=== PATIENT | male | born 1980 | race Caucasian/White ===

== ENCOUNTER 2017-12-18 03:53 | Emergency (ER) | payer MEDICAID ==
[~2017-12-18] VITALS: Ht 180.3 cm; Wt 81.6 kg
[2017-12-18 04:27] LABS: Urine Bacteria NONE SEEN /hpf (None Seen); Urine Blood 1+ /uL (Negative); Urine Specific Gravity 1.036 (1.001-1.035); Urine WBC <1 /hpf (0 - 3)
[2017-12-18 04:35] LABS: Basophils # (auto) 0 uL; Basophils % (auto) 0.7 % (0.0-2.0); Eosinophils # (auto) 0.1 uL; Eosinophils % (auto) 2.1 % (0.0-7.0); Hematocrit 46.3 % (41.0-53.0); Hemoglobin 16.2 g/dL (13.5-17.5); Lymphocytes # (auto) 2.3 uL; Lymphocytes % (auto) 41.2 % (10.0-50.0); Mean Corpuscular Hgb Conc. 34.9 g/dL (32.0-36.0); Mean Corpuscular Volume 88.8 fL (80.0-100.0); Monocytes # (auto) 0.4 uL; Monocytes % (auto) 7.8 % (0.0-12.0); Neutrophils # (auto) 2.7 uL; Neutrophils % (auto) 48.2 % (37.0-80.0); Nucleated Red Blood Cells % 0.1 %; Platelet Count (auto) 208 10^3/uL (140-450); Red Blood Cells 5.21 10^6/uL (4.5-5.90); Red Cell Distribution Width 14.2 % (11.8-14.3); White Blood Cell 5.6 10^3/uL (4.4-10.8)
[2017-12-18 04:43] LABS: Albumin 3.6 g/dL (3.4-5.0); BUN/Creatinine Ratio 14.9; Calcium 8.5 mg/dL (8.5-10.1); Potassium 4.1 mmol/L (3.5-5.1)
[2017-12-18 04:44] LABS: Bilirubin, Total 0.8 mg/dL (0.2-1.0); Total Protein 7.4 g/dL (6.4-8.2)
[2017-12-18 04:47] LABS: INR 0.97 (0.9-1.15); Partial Thromboplastin Time 28.5 sec (22.64-33.71); Prothrombin Time 10.6 sec (9.37-12.3)
[2017-12-18] MEDS ORDERED: SODIUM CHLORIDE 0.9% 1,000 ML IV ONE (06:42)
[2017-12-18] MEDS ORDERED: KETOROLAC TROMETH 30 MG/ML 1ML VIAL IV ONE (06:45)
[2017-12-18 07:00] VITALS: BP 155/80
[2017-12-18] MEDS ORDERED: DOCUSATE SOD 100 MG CAP PO ONE (07:30)
== END 2017-12-18 07:44 | disposition home or self-care (01) ==
LOC: ER 03:58
DX: K59.00 Constipation, unspecified (principal); E11.9 Type 2 diabetes mellitus without complications; F17.210 Nicotine dependence, cigarettes, uncomplicated; F12.10 Cannabis abuse, uncomplicated
CPT/HCPCS: 36415; 74176; 80053; 81001; 82962; 85025; 85610; 85730; 99285; J7030

== ENCOUNTER 2018-12-29 12:23 | Emergency (ER) | payer MEDICAID ==
[~2018-12-29] VITALS: Ht 182.9 cm; Wt 90.3 kg
[2018-12-29 12:40] VITALS: BP 150/95
[2018-12-29] MEDS ORDERED: SODIUM CHLORIDE 0.9% 1,000 ML IV ONE ×2 (13:00→14:00)
[2018-12-29 13:15] LABS: Basophils # (auto) 0 uL; Basophils % (auto) 0.8 % (0.0-2.0); Eosinophils # (auto) 0.1 uL; Eosinophils % (auto) 2.1 % (0.0-7.0); Hematocrit 38.6 % (41.0-53.0); Hemoglobin 13.4 g/dL (13.5-17.5); Lymphocytes # (auto) 1.9 uL; Lymphocytes % (auto) 35.9 % (10.0-50.0); Mean Corpuscular Hemoglobin 30.9 pg (28.0-32.0); Mean Corpuscular Hgb Conc. 34.8 g/dL (32.0-36.0); Mean Corpuscular Volume 88.6 fL (80.0-100.0); Monocytes # (auto) 0.3 uL; Monocytes % (auto) 6.3 % (0.0-12.0); Neutrophils # (auto) 2.9 uL; Neutrophils % (auto) 54.9 % (37.0-80.0); Nucleated Red Blood Cells % 0.1 %; Platelet Count (auto) 182 10^3/uL (140-450); Red Blood Cells 4.35 10^6/uL (4.5-5.90); Red Cell Distribution Width 13.4 % (11.8-14.3); White Blood Cell 5.2 10^3/uL (4.4-10.8)
[2018-12-29] MEDS ORDERED: cefTRIAXone 1GM/50ML D5W 50 ML IV ONE (13:15)
[2018-12-29 13:25] LABS: Urine Bacteria NONE SEEN /hpf (None Seen); Urine Blood 2+ /uL (Negative); Urine Specific Gravity 1.022 (1.001-1.035); Urine WBC 2 /hpf (0 - 3)
[2018-12-29 13:30] LABS: Albumin 3.1 g/dL (3.4-5.0); Calcium 8.9 mg/dL (8.5-10.1); Potassium 4.3 mmol/L (3.5-5.1)
[2018-12-29 13:33] LABS: BUN/Creatinine Ratio 12.9; Bilirubin, Total 0.6 mg/dL (0.2-1.0); Total Protein 6.7 g/dL (6.4-8.2)
[2018-12-29] MEDS ORDERED: InsuLIN REG 1unit/0.01ml Soln (100units/ml) IV ONE (13:45)
== END 2018-12-29 15:00 | disposition home or self-care (01) ==
LOC: ER 12:29
DX: S90.422A Blister (nonthermal), left great toe, initial encounter (principal); L08.9 Local infection of the skin and subcutaneous tissue, unspecified; E11.65 Type 2 diabetes mellitus with hyperglycemia; F17.210 Nicotine dependence, cigarettes, uncomplicated; F12.10 Cannabis abuse, uncomplicated; X58.XXXA Exposure to other specified factors, initial encounter; Y93.89 Activity, other specified; Y99.8 Other external cause status; Y92.89 Other specified places as the place of occurrence of the external cause
CPT/HCPCS: 36415; 73660; 80053; 81001; 82962; 85025; 96361; 96365; 96375; 99284; J0696; J7030

== ENCOUNTER 2019-01-08 13:45 | Inpatient (IN) | payer MEDICAID | END 2019-01-12 19:00 | disposition home health service (06) | LOC: ER 13:45 → OVERFLOW 16:47 → EAST 18:30 | DX: L03.032 Cellulitis of left toe (principal); E13.621 Other specified diabetes mellitus with foot ulcer; E44.0 Moderate protein-calorie malnutrition; E11.65 Type 2 diabetes mellitus with hyperglycemia; L97.529 Non-pressure chronic ulcer of other part of left foot with unspecified severity; F17.210 Nicotine dependence, cigarettes, uncomplicated; Z91.19 Patient's noncompliance with other medical treatment and regimen ==

== ENCOUNTER 2019-12-02 16:08 | Inpatient (IN) | payer MEDICAID ==
[~2019-12-02] VITALS: Ht 182.9 cm; Wt 94.0 kg
[~2019-12-02 16:08] MED LIST: METF-370 PO
[2019-12-02] MEDS ORDERED: SODIUM CHLORIDE 0.9% 1,000 ML IV ONE ×2 (16:35)
[2019-12-02] MEDS ORDERED: PIPERACILLIN-TAZOB 3.375GM 100 ML IV ONE (16:45)
[2019-12-02 17:07] LABS: Basophils # (auto) 0.1 10 ^3/uL (0-0.2); Basophils % (auto) 0.6 % (0.0-2.0); Eosinophils # (auto) 0.2 10 ^3/uL (0-0.8); Eosinophils % (auto) 1.8 % (0.0-7.0); Hematocrit 26.5 % (41.0-53.0); Hemoglobin 9.4 g/dL (13.5-17.5); Lymphocytes # (auto) 1.2 10 ^3/uL (0.4-5.4); Lymphocytes % (auto) 12.7 % (10.0-50.0); Mean Corpuscular Hemoglobin 30.5 pg (28.0-32.0); Mean Corpuscular Hgb Conc. 35.4 g/dL (32.0-36.0); Mean Corpuscular Volume 86.1 fL (80.0-100.0); Monocytes # (auto) 0.6 10 ^3/uL (0-1.3); Monocytes % (auto) 6.5 % (0.0-12.0); Neutrophils # (auto) 7.4 10 ^3/uL (1.6-8.6); Neutrophils % (auto) 78.4 % (37.0-80.0); Platelet Count (auto) 278 10^3/uL (140-450); Red Blood Cells 3.08 10^6/uL (4.5-5.90); Red Cell Distribution Width 12.7 % (11.8-14.3); White Blood Cell 9.4 10^3/uL (4.4-10.8)
[2019-12-02 17:25] LABS: Alanine Aminotransferase 19 U/L (16-61); Albumin 1.9 g/dL (3.4-5.0); Anion Gap 9 (5-15); Aspartate Aminotransferase 12 U/L (15-37); BUN/Creatinine Ratio 16.5; Blood Urea Nitrogen 34 mg/dL (7-18); Calcium 8.1 mg/dL (8.5-10.1); Carbon Dioxide 21 mmol/L (21-32); Chloride 103 mmol/L (98-107); GFR African American 46 mL/min; GFR Non-African American 38 mL/min; Glucose 262 mg/dL (74-106); Partial Thromboplastin Time 19.7 sec (23.64-32.05); Potassium 4.3 mmol/L (3.5-5.1); Sodium 133 mmol/L (136-145)
[2019-12-02 17:29] LABS: Alkaline Phosphatase 78 U/L (45-117); Bilirubin, Total 0.2 mg/dL (0.2-1.0); Total Protein 6.5 g/dL (6.4-8.2)
[2019-12-02] MEDS ORDERED: DEXTROSE (50%) 50ML SYRG IV PRN (18:45)
[2019-12-02] MEDS ORDERED: NITROGLYCERIN 0.4 MG SL TAB SL PRN (18:45)
[2019-12-02] MEDS ORDERED: VANCOMYCIN PER PHARMACY 0 MG IV SCH ×2 (18:45)
[2019-12-02] MEDS ORDERED: MORPHINE SULF INJ 2 MG/ML SYRINGE 1ML IV PRN ×2 (18:45)
[2019-12-02] MEDS ORDERED: HYDROcodone-ACET 5/325MG TAB PO PRN (18:45)
[2019-12-02] MEDS ORDERED: VANCOMYCIN 1GM/250ML 250 ML IV ONE (20:00)
[2019-12-02] MEDS: SODIUM CHLORIDE 0.9% 1,000 ML IV SCH (20:05)
[2019-12-02 22:00] VITALS: BP 152/100
[2019-12-02] MEDS: metroNIDAZOLE 500MG/100ML 100 ML IV SCH (22:31)
[2019-12-02] MEDS: FAMOTIDINE 20 MG TAB PO SCH (22:32)
[2019-12-02] MEDS: ACCU-CHEK COMFORT CURVE STRIP VI SCH (22:52)
[2019-12-02] MEDS: InsuLIN REG 1unit/0.01ml Soln (100units/ml) SC SCH (22:53)
[2019-12-03 05:00] VITALS: BP 153/83
[2019-12-03 05:39] LABS: Basophils # (auto) 0 10 ^3/uL (0-0.2); Basophils % (auto) 0.5 % (0.0-2.0); Eosinophils # (auto) 0.1 10 ^3/uL (0-0.8); Eosinophils % (auto) 1.8 % (0.0-7.0); Hematocrit 22.2 % (41.0-53.0); Hemoglobin 7.9 g/dL (13.5-17.5); Lymphocytes # (auto) 1.4 10 ^3/uL (0.4-5.4); Lymphocytes % (auto) 16.9 % (10.0-50.0); Mean Corpuscular Hemoglobin 30.9 pg (28.0-32.0); Mean Corpuscular Hgb Conc. 35.8 g/dL (32.0-36.0); Mean Corpuscular Volume 86.2 fL (80.0-100.0); Monocytes # (auto) 0.5 10 ^3/uL (0-1.3); Monocytes % (auto) 6.4 % (0.0-12.0); Neutrophils # (auto) 6.1 10 ^3/uL (1.6-8.6); Neutrophils % (auto) 74.4 % (37.0-80.0); Platelet Count (auto) 270 10^3/uL (140-450); Red Blood Cells 2.57 10^6/uL (4.5-5.90); Red Cell Distribution Width 12.9 % (11.8-14.3); White Blood Cell 8.2 10^3/uL (4.4-10.8)
[2019-12-03 05:59] LABS: INR 1.05 (0.9-1.15); Partial Thromboplastin Time 31.6 sec (23.64-32.05)
[2019-12-03 06:00] LABS: Calcium 7.9 mg/dL (8.5-10.1)
[2019-12-03 06:03] LABS: BUN/Creatinine Ratio 18.2
[2019-12-03] MEDS: metroNIDAZOLE 500MG/100ML 100 ML IV SCH ×3 (06:36→22:28)
[2019-12-03] MEDS: SODIUM CHLORIDE 0.9% 1,000 ML IV SCH ×3 (06:36→11:43)
[2019-12-03] MEDS: InsuLIN REG 1unit/0.01ml Soln (100units/ml) SC SCH ×4 (06:47→22:18)
[2019-12-03] MEDS: ACCU-CHEK COMFORT CURVE STRIP VI SCH ×4 (06:47→22:17)
[2019-12-03 08:00] VITALS: BP 155/80
[2019-12-03 09:27] VITALS: BP 155/80
[2019-12-03] MEDS: levoFLOXacin 750MG 150 ML IV SCH (10:05)
[2019-12-03] MEDS: FAMOTIDINE 20 MG TAB PO SCH ×2 (10:05→22:28)
[2019-12-03 13:00] VITALS: BP 149/90
[2019-12-03] MEDS: VANCOMYCIN 1GM/250ML 250 ML IV SCH (14:42)
[2019-12-03 16:53] VITALS: BP 148/86
[2019-12-03 22:00] VITALS: BP 154/91
[2019-12-04] MEDS: VANCOMYCIN 1GM/250ML 250 ML IV SCH ×2 (01:35→15:04)
[2019-12-04] MEDS: ACETAMINOPHEN 500 MG TAB PO PRN ×2 (02:30→22:26)
[2019-12-04 05:00] VITALS: BP 141/76
[2019-12-04] MEDS: metroNIDAZOLE 500MG/100ML 100 ML IV SCH ×3 (06:14→22:16)
[2019-12-04] MEDS: ACCU-CHEK COMFORT CURVE STRIP VI SCH ×4 (06:30→22:15)
[2019-12-04] MEDS: InsuLIN REG 1unit/0.01ml Soln (100units/ml) SC SCH ×4 (06:31→22:25)
[2019-12-04 09:26] VITALS: BP_SYST 150; BP_SYST 151; BP_DIAS 84; BP_DIAS 94
[2019-12-04] MEDS: levoFLOXacin 750MG 150 ML IV SCH (10:05)
[2019-12-04] MEDS: FAMOTIDINE 20 MG TAB PO SCH ×2 (10:05→22:15)
[2019-12-04] MEDS: SODIUM CHLORIDE 0.9% 1,000 ML IV SCH (10:06)
[2019-12-04 11:28] LABS: Basophils # (auto) 0.1 10 ^3/uL (0-0.2); Basophils % (auto) 0.7 % (0.0-2.0); Eosinophils # (auto) 0.1 10 ^3/uL (0-0.8); Eosinophils % (auto) 1.8 % (0.0-7.0); Hematocrit 24.6 % (41.0-53.0); Hemoglobin 8.7 g/dL (13.5-17.5); Lymphocytes # (auto) 1.1 10 ^3/uL (0.4-5.4); Lymphocytes % (auto) 14.2 % (10.0-50.0); Mean Corpuscular Hemoglobin 30.8 pg (28.0-32.0); Mean Corpuscular Hgb Conc. 35.5 g/dL (32.0-36.0); Mean Corpuscular Volume 86.9 fL (80.0-100.0); Monocytes # (auto) 0.5 10 ^3/uL (0-1.3); Monocytes % (auto) 6.2 % (0.0-12.0); Neutrophils # (auto) 6.1 10 ^3/uL (1.6-8.6); Neutrophils % (auto) 77.1 % (37.0-80.0); Nucleated Red Blood Cells % 0.1 %; Platelet Count (auto) 278 10^3/uL (140-450); Red Blood Cells 2.83 10^6/uL (4.5-5.90); Red Cell Distribution Width 12.7 % (11.8-14.3); White Blood Cell 7.9 10^3/uL (4.4-10.8)
[2019-12-04] MEDS: hydrALAZINE HCL 20 MG/ML VL IV PRN ×3 (11:36→18:07)
[2019-12-04 11:45] LABS: Calcium 8.4 mg/dL (8.5-10.1); Potassium 4.4 mmol/L (3.5-5.1)
[2019-12-04 11:47] LABS: BUN/Creatinine Ratio 13.7
[2019-12-04 13:00] VITALS: BP 159/92
[2019-12-04 17:16] VITALS: BP 156/97
[2019-12-04 21:49] VITALS: BP 162/98
[2019-12-04] MEDS: INSULIN LANTUS (GLARGINE) 1 /0.01ml (100units/ml) SC SCH (22:26)
[2019-12-05] MEDS: VANCOMYCIN 1GM/250ML 250 ML IV SCH (03:00)
[2019-12-05 05:08] VITALS: BP 152/84
[2019-12-05] MEDS: InsuLIN REG 1unit/0.01ml Soln (100units/ml) SC SCH ×4 (06:29→22:42)
[2019-12-05] MEDS: ACCU-CHEK COMFORT CURVE STRIP VI SCH ×4 (06:29→22:42)
[2019-12-05] MEDS: metroNIDAZOLE 500MG/100ML 100 ML IV SCH ×3 (06:30→22:40)
[2019-12-05] MEDS: SODIUM CHLORIDE 0.9% 1,000 ML IV SCH (06:31)
[2019-12-05 09:00] VITALS: BP 137/73
[2019-12-05] MEDS: FAMOTIDINE 20 MG TAB PO SCH ×2 (12:55→22:40)
[2019-12-05] MEDS: levoFLOXacin 750MG 150 ML IV SCH (12:55)
[2019-12-05 13:00] VITALS: BP 150/82
[2019-12-05 14:19] LABS: Calcium 8.1 mg/dL (8.5-10.1); Potassium 4.4 mmol/L (3.5-5.1)
[2019-12-05 14:27] LABS: BUN/Creatinine Ratio 13.9
[2019-12-05] MEDS ORDERED: VANCOMYCIN 1GM/250ML 250 ML IV SCH (15:00)
[2019-12-05 16:51] VITALS: BP 157/94
[2019-12-05 21:00] VITALS: BP 144/97
[2019-12-05] MEDS: INSULIN LANTUS (GLARGINE) 1 /0.01ml (100units/ml) SC SCH (22:41)
[2019-12-06 05:00] VITALS: BP 155/90
[2019-12-06 05:35] LABS: Basophils # (auto) 0 10 ^3/uL (0-0.2); Lymphocytes # (auto) 1.4 10 ^3/uL (0.4-5.4); Mean Corpuscular Volume 85.5 fL (80.0-100.0)
[2019-12-06 05:37] LABS: Basophils % (auto) 0.5 % (0.0-2.0); Eosinophils # (auto) 0.1 10 ^3/uL (0-0.8); Eosinophils % (auto) 2.3 % (0.0-7.0); Hematocrit 23.5 % (41.0-53.0); Hemoglobin 8.3 g/dL (13.5-17.5); Lymphocytes % (auto) 21.8 % (10.0-50.0); Mean Corpuscular Hemoglobin 30.3 pg (28.0-32.0); Mean Corpuscular Hgb Conc. 35.5 g/dL (32.0-36.0); Monocytes # (auto) 0.4 10 ^3/uL (0-1.3); Monocytes % (auto) 6.9 % (0.0-12.0); Neutrophils # (auto) 4.4 10 ^3/uL (1.6-8.6); Neutrophils % (auto) 68.5 % (37.0-80.0); Platelet Count (auto) 274 10^3/uL (140-450); Red Blood Cells 2.75 10^6/uL (4.5-5.90); Red Cell Distribution Width 12.8 % (11.8-14.3); White Blood Cell 6.5 10^3/uL (4.4-10.8)
[2019-12-06 05:47] LABS: BUN/Creatinine Ratio 18.4; Calcium 8.3 mg/dL (8.5-10.1); Potassium 4.5 mmol/L (3.5-5.1)
[2019-12-06] MEDS: InsuLIN REG 1unit/0.01ml Soln (100units/ml) SC SCH ×4 (06:46→22:23)
[2019-12-06] MEDS: ACCU-CHEK COMFORT CURVE STRIP VI SCH ×4 (06:47→22:21)
[2019-12-06] MEDS ORDERED: CLINDAMYCIN 600MG IV 50 ML IV ONE (06:53)
[2019-12-06] MEDS ORDERED: BACITRACIN INJ 50000 UNIT VIAL ONE (06:56)
[2019-12-06] MEDS ORDERED: LIDOCAINE 1% HCL (LOCAL ANESTH.) INJ 20ML MDV ONE (07:37)
[2019-12-06] MEDS ORDERED: SUCCINYLCHOLINE CHLORIDE 20 MG/ML 10ML VIAL IV ONE (07:38)
[2019-12-06] MEDS ORDERED: MIDAZOLAM HCL 1MG/1ML-2 ML VIAL ONE (07:40)
[2019-12-06] MEDS ORDERED: METOCLOPRAMIDE HCL 5MG/ml INJ 2ml VIAL ONE (07:46)
[2019-12-06] MEDS ORDERED: diphenhdrAMINE HCL 50 MG/1 ML VL ONE (07:47)
[2019-12-06] MEDS ORDERED: GLYCOPYRROLATE 0.2 MG/ML 1ML VIAL ONE (07:47)
[2019-12-06] MEDS ORDERED: hydrALAZINE HCL 20 MG/ML VL ONE (07:49)
[2019-12-06] MEDS ORDERED: PROPOFOL 10 MG/ML 20 ML IV ONE ×2 (07:50→07:51)
[2019-12-06] MEDS: BUPIVACAINE HCL 50 ML ONE ×2 (07:58→09:55)
[2019-12-06] MEDS ORDERED: HYDROmorphone HCL 2 MG/ML VL IV PRN ×2 (08:00)
[2019-12-06] MEDS ORDERED: hydrALAZINE HCL 20 MG/ML VL IV PRN (08:00)
[2019-12-06] MEDS ORDERED: NALOXONE HCL 0.4 MG/ML VIAL IV PRN (08:00)
[2019-12-06] MEDS ORDERED: ACCU-CHEK COMFORT CURVE STRIP VI ONE (08:00)
[2019-12-06] MEDS ORDERED: ONDANSETRON HCL 4 MG/2 ML VIAL IV PRN (08:00)
[2019-12-06] MEDS ORDERED: LIDOCAINE HCL 2% TOP JELLY 5ML TOP ONE (08:10)
[2019-12-06] MEDS: FAMOTIDINE 20 MG TAB PO SCH ×2 (10:17→22:21)
[2019-12-06] MEDS: levoFLOXacin 500 MG TAB PO SCH (10:17)
[2019-12-06 13:00] VITALS: BP 151/90
[2019-12-06 17:00] VITALS: BP 157/93
[2019-12-06 20:05] VITALS: BP 152/98
[2019-12-06 21:00] VITALS: BP 152/98
[2019-12-06] MEDS: CLINDAMYCIN 300MG IV 50 ML IV SCH (22:20)
[2019-12-06] MEDS: INSULIN LANTUS (GLARGINE) 1 /0.01ml (100units/ml) SC SCH (22:22)
[2019-12-07 05:00] VITALS: BP 151/87
[2019-12-07] MEDS: ACCU-CHEK COMFORT CURVE STRIP VI SCH ×2 (06:41→12:34)
[2019-12-07] MEDS: CLINDAMYCIN 300MG IV 50 ML IV SCH ×2 (06:41→17:17)
[2019-12-07] MEDS: InsuLIN REG 1unit/0.01ml Soln (100units/ml) SC SCH ×2 (06:42→12:34)
[2019-12-07 09:00] VITALS: BP 148/89
[2019-12-07] MEDS: levoFLOXacin 500 MG TAB PO SCH (10:39)
[2019-12-07] MEDS: FAMOTIDINE 20 MG TAB PO SCH (10:39)
[2019-12-07 13:00] VITALS: BP 153/93
[2019-12-07 17:00] VITALS: BP 174/104
[2019-12-07] MEDS ORDERED: AMOX500T86 PO (17:30)
[2019-12-07] MEDS ORDERED: LINA5TAB PO (17:31)
[2019-12-07] MEDS ORDERED: GLIP5TAB12 PO (17:35)
[2019-12-07] MEDS ORDERED: AMLO10TA13 PO (17:38)
[2019-12-07] MEDS ORDERED: LOSA-69 PO (17:40)
[2019-12-07] MEDS ORDERED: ATOR40TA52 PO (17:41)
[2019-12-07 18:33] VITALS: BP 156/97
== END 2019-12-07 19:30 | disposition home or self-care (01) | DRG 710 ==
LOC: ER 16:11 → TELE 16:12 → TELE-WESTW 20:10
PROVIDERS: ADMIT Nurse Practitioner Acute Care; ATTEND Internal Medicine Nephrology
PROC: 0S9N0ZZ Drainage of Left Metatarsal-Phalangeal Joint, Open Approach (ICD-10-PCS; 2019-12-04)
PROC: 0Y6N0ZF Detachment at Left Foot, Partial 5th Ray, Open Approach (ICD-10-PCS; principal; 2019-12-06 07:41)
DX: A41.9 Sepsis, unspecified organism (principal); N17.0 Acute kidney failure with tubular necrosis; A48.0 Gas gangrene; E10.22 Type 1 diabetes mellitus with diabetic chronic kidney disease; E10.52 Type 1 diabetes mellitus with diabetic peripheral angiopathy with gangrene; E86.0 Dehydration; E10.628 Type 1 diabetes mellitus with other skin complications; R65.20 Severe sepsis without septic shock; L08.9 Local infection of the skin and subcutaneous tissue, unspecified; M86.8X8 Other osteomyelitis, other site; D63.8 Anemia in other chronic diseases classified elsewhere; F19.10 Other psychoactive substance abuse, uncomplicated; Z91.14 Patient's other noncompliance with medication regimen; L02.612 Cutaneous abscess of left foot; E10.69 Type 1 diabetes mellitus with other specified complication; I12.9 Hypertensive chronic kidney disease with stage 1 through stage 4 chronic kidney disease, or unspecified chronic kidney disease; F17.210 Nicotine dependence, cigarettes, uncomplicated; M86.8X7 Other osteomyelitis, ankle and foot; N18.3 Chronic kidney disease, stage 3 (moderate); Z79.4 Long term (current) use of insulin; Z83.3 Family history of diabetes mellitus; Z91.19 Patient's noncompliance with other medical treatment and regimen
CPT/HCPCS: 36415; 71045; 73700; 73718; 80048; 80053; 80202; 82962; 83036; 83605; 84484; 85014; 85018; 85025; 85610; 85730; 87040; 87070; 87075; 87076; 87077; 87186; 87205; 93925; 93971; 96361; 96365; G0378; J0330; J1815; J1956; J2001; J2250; J2543; J2704; J3490

== ENCOUNTER → 2020-04-28 | Emergency (ER) | payer MEDICAID ==
[~2020-04-28] VITALS: Ht 182.9 cm; Wt 88.5 kg
[~2020-04-28] MED LIST changes: +AMOX500T86 PO; +CLINDAMYCIN HCL 150 MG CAP PO ONE; +LINA5TAB PO; -METF-370 PO; +cefTRIAXone SOD 1,000 MG VL IM ONE
[2020-04-28 17:59] LABS: Basophils # (auto) 0.1 10 ^3/uL (0-0.2); Basophils % (auto) 0.8 % (0.0-2.0); Eosinophils # (auto) 0.1 10 ^3/uL (0-0.8); Eosinophils % (auto) 1.7 % (0.0-7.0); Hematocrit 21.6 % (41.0-53.0); Hemoglobin 7.5 g/dL (13.5-17.5); Lymphocytes # (auto) 1.4 10 ^3/uL (0.4-5.4); Lymphocytes % (auto) 18.4 % (10.0-50.0); Mean Corpuscular Hemoglobin 30.3 pg (28.0-32.0); Mean Corpuscular Hgb Conc. 34.9 g/dL (32.0-36.0); Mean Corpuscular Volume 86.7 fL (80.0-100.0); Monocytes # (auto) 0.5 10 ^3/uL (0-1.3); Monocytes % (auto) 5.9 % (0.0-12.0); Neutrophils # (auto) 5.6 10 ^3/uL (1.6-8.6); Neutrophils % (auto) 73.2 % (37.0-80.0); Platelet Count (auto) 290 10^3/uL (140-450); Red Blood Cells 2.49 10^6/uL (4.5-5.90); Red Cell Distribution Width 14.5 % (11.8-14.3); White Blood Cell 7.7 10^3/uL (4.4-10.8)
[2020-04-28 18:15] LABS: Calcium 7.9 mg/dL (8.5-10.1); Potassium 3.8 mmol/L (3.5-5.1)
[2020-04-28 18:19] LABS: BUN/Creatinine Ratio 13.5; Bilirubin, Total 0.2 mg/dL (0.2-1.0); Total Protein 5.6 g/dL (6.4-8.2)
[2020-04-28 18:40] VITALS: BP 165/91
== END | disposition home or self-care (01) ==
LOC: ER 15:35
DX: S90.822A Blister (nonthermal), left foot, initial encounter (principal); F17.210 Nicotine dependence, cigarettes, uncomplicated; E11.9 Type 2 diabetes mellitus without complications; I10 Essential (primary) hypertension; Z79.899 Other long term (current) drug therapy; Z88.1 Allergy status to other antibiotic agents; X58.XXXA Exposure to other specified factors, initial encounter; Y93.89 Activity, other specified; Y92.89 Other specified places as the place of occurrence of the external cause; Y99.8 Other external cause status
CPT/HCPCS: 36415; 73700; 80053; 85025; 96372; 99284; J0696

== ENCOUNTER 2020-06-24 10:28 | Inpatient (IN) | payer MEDICAID ==
[~2020-06-24] VITALS: Ht 182.9 cm; Wt 108.5 kg
[~2020-06-24 10:28] MED LIST changes: -CLINDAMYCIN HCL 150 MG CAP PO ONE; -cefTRIAXone SOD 1,000 MG VL IM ONE
[2020-06-24 14:36] LABS: Basophils # (auto) 0.1 10 ^3/uL (0-0.2); Basophils % (auto) 0.8 % (0.0-2.0); Eosinophils # (auto) 0.2 10 ^3/uL (0-0.8); Eosinophils % (auto) 3.1 % (0.0-7.0); Hematocrit 27.9 % (41.0-53.0); Hemoglobin 9.6 g/dL (13.5-17.5); Lymphocytes # (auto) 1.6 10 ^3/uL (0.4-5.4); Lymphocytes % (auto) 24.1 % (10.0-50.0); Mean Corpuscular Hemoglobin 30.5 pg (28.0-32.0); Mean Corpuscular Hgb Conc. 34.4 g/dL (32.0-36.0); Mean Corpuscular Volume 88.5 fL (80.0-100.0); Monocytes # (auto) 0.5 10 ^3/uL (0-1.3); Monocytes % (auto) 7.5 % (0.0-12.0); Neutrophils # (auto) 4.2 10 ^3/uL (1.6-8.6); Neutrophils % (auto) 64.5 % (37.0-80.0); Nucleated Red Blood Cells % 0.1 %; Platelet Count (auto) 271 10^3/uL (140-450); Red Blood Cells 3.15 10^6/uL (4.5-5.90); Red Cell Distribution Width 13.3 % (11.8-14.3); White Blood Cell 6.5 10^3/uL (4.4-10.8)
[2020-06-24 14:57] LABS: Albumin 1.9 g/dL (3.4-5.0); Calcium 8.2 mg/dL (8.5-10.1); Potassium 3.9 mmol/L (3.5-5.1)
[2020-06-24 15:02] LABS: Bilirubin, Total 0.3 mg/dL (0.2-1.0); Total Protein 5.8 g/dL (6.4-8.2)
[2020-06-25] MEDS ORDERED: FUROSEMIDE 40 MG/4 ML VIAL IV ONE
[2020-06-25] MEDS ORDERED: ONDANSETRON HCL 4 MG/2 ML VIAL IV ONE
[2020-06-25] MEDS ORDERED: MORPHINE SULFATE 4 MG/ML SYR/VIAL IV ONE
[2020-06-25] MEDS ORDERED: PANTOPRAZOLE 40 MG/10 ML VIAL INJ IV ONE (00:15)
[2020-06-25] MEDS ORDERED: NIFEdipine 10 MG CAP PO ONE (00:30)
[2020-06-25 02:43] LABS: Urine Amorphous Crystal FEW /hpf (None Seen); Urine Bacteria FEW /hpf (None Seen); Urine Blood 2+ /uL (Negative); Urine Hyaline Cast FEW /lpf (0 - 2); Urine Specific Gravity 1.015 (1.001-1.035); Urine WBC 3 /hpf (0 - 3)
[2020-06-25] MEDS ORDERED: cefTRIAXone 1GM/50ML D5W 50 ML IV ONE (02:45)
[2020-06-25 02:54] LABS: Alcohol, Urine < 3.0 mg/dL (0-10); Amphetamine Screen, Urine NEGATIVE (NEGATIVE); Barbiturate Scree,Urine NEGATIVE (NEGATIVE); Benzodiazephine Screen, Urine NEGATIVE (NEGATIVE); Cannabinoid Screen, Urine NEGATIVE (NEGATIVE); Cocaine Screen, Urine NEGATIVE (NEGATIVE); Opiate Scree,Urine NEGATIVE (NEGATIVE); Phencyclidine Screen, Urine NEGATIVE (NEGATIVE)
[2020-06-25] MEDS ORDERED: MORPHINE SULF INJ 2 MG/ML SYRINGE 1ML IV PRN (03:15)
[2020-06-25] MEDS ORDERED: ONDANSETRON HCL 4 MG/2 ML VIAL IV PRN (03:15)
[2020-06-25] MEDS ORDERED: NITROGLYCERIN 0.4 MG SL TAB SL PRN (03:15)
[2020-06-25 05:39] LABS: Band Neutrophils % (manual) 0; Basophils % (manual) 0 (0.0-2.0); Blast Cells 0; Metamyelocytes % 0; Myelocytes % 0; Promyelocytes % 0; Reactive Lymphocytes 0
--- NOTE | 2020-06-25 06:00 | NUR ---
Telemetry admit from ER JOSE MARIAANIL admitted to Telemetry unit after SBAR received. Patient oriented to primary RN, unit, room, bed, and unit policies regarding patient care and visiting hours. Patient now on continuous telemetry monitoring, tele box #10 and telemetry reading on arrival to unit is NSR. Patient placed on bedside oxygen, weighed by bedscale and encouraged to call if they need something. All questions and concerns addressed, patient verbalized understanding. Bed in lowest locked position, call light within reach, side rails up x2, fall precautions in place. Will continue to monitor Q1hr and PRN.
[2020-06-25 06:01] LABS: Hematocrit 24.2 % (41.0-53.0); Hemoglobin 8.5 g/dL (13.5-17.5); Mean Corpuscular Hemoglobin 30.9 pg (28.0-32.0); Mean Corpuscular Volume 88.3 fL (80.0-100.0); Platelet Count (auto) 229 10^3/uL (140-450); Red Blood Cells 2.74 10^6/uL (4.5-5.90); Red Cell Distribution Width 13.6 % (11.8-14.3); White Blood Cell 5.2 10^3/uL (4.4-10.8)
[2020-06-25 06:23] LABS: Chloride 115 mmol/L (98-107); Potassium 3.6 mmol/L (3.5-5.1); Sodium 143 mmol/L (136-145)
[2020-06-25 06:31] LABS: Alanine Aminotransferase 17 U/L (16-61); Albumin 1.8 g/dL (3.4-5.0); Alkaline Phosphatase 82 U/L (45-117); Anion Gap 4 (5-15); Aspartate Aminotransferase 17 U/L (15-37); BUN/Creatinine Ratio 12.2; Bilirubin, Direct < 0.1 mg/dL (0-0.2); Bilirubin, Total 0.2 mg/dL (0.2-1.0); Blood Urea Nitrogen 40 mg/dL (7-18); Calcium 7.8 mg/dL (8.5-10.1); Carbon Dioxide 24 mmol/L (21-32); Cholesterol 171 mg/dL (< 200); GFR African American 27 mL/min; GFR Non-African American 22 mL/min; Glucose 94 mg/dL (74-106); HDL Cholesterol 37 mg/dL (40-59); LDL Cholesterol 111 mg/dL (< 100); Magnesium 2.1 mg/dL (1.6-2.6); Phosphorus 4.5 mg/dL (2.5-4.90); Total Protein 4.9 g/dL (6.4-8.2); Triglycerides 146 mg/dL (< 150)
[2020-06-25] MEDS ORDERED: GLIP5TAB12 PO (06:33)
[2020-06-25] MEDS ORDERED: FURO20TA3 PO (06:33)
--- NOTE | 2020-06-25 06:55 | NUR ---
Wound pic taken
[2020-06-25 07:01] LABS: Eosinophils % (manual) 3 (0-7); Lymphocytes % (manual) 27 (10.0-50.0); Monocytes % (manual) 2 (0-12)
--- NOTE | 2020-06-25 07:39 | NUR ---
Opening Shift Note Assumed care of patient, awake and alert. No S/S of distress/SOB, reports mild pain. Edema noted to bilateral legs and testicals, salas cath in place. Instructed on POC and to call for assist PRN, will continue to monitor for changes Q1hr and PRN.
[2020-06-25 09:00] VITALS: BP 162/96
[2020-06-25 09:38] LABS: % Iron Saturation 18.5 % (20-55)
--- NOTE | 2020-06-25 11:32 | NUR ---
Report given to Chioma, patient transfered to [address] with all belongings.
[2020-06-25 13:00] VITALS: BP 138/81
[2020-06-25 13:35] LABS: Hepatitis B Surface Antigen Negative (Negative); Hepatitis C Antibody Negative (Negative)
--- NOTE | 2020-06-25 15:00 | NUR ---
Nephro MD Ko at bedside, aware of patient status. New orders received, read back, and verified. Will carry out new orders and cont to monitor patient.
[2020-06-25 15:08] LABS: Urine Bacteria FEW /hpf (None Seen); Urine Blood 2+ /uL (Negative); Urine Hyaline Cast FEW /lpf (0 - 2); Urine Specific Gravity 1.015 (1.001-1.035); Urine WBC 7 /hpf (0 - 3)
[2020-06-25 17:00] VITALS: BP 151/96
[2020-06-25] MEDS: FUROSEMIDE 20 MG/2 ML VIAL IV SCH (17:37)
--- NOTE | 2020-06-25 19:40 | NUR ---
Opening Shift Note Assumed care of patient, awake and alert x 4. No S/S of distress/SOB or pain. Edema to testicles and bilateral legs. Santillan in place with urine flowing. Tele box matches patient and all leads in place. Bed lowered and locked bed rails up x 2. Call light and bedside table within reach. Instructed on POC and to call for assist PRN, will continue to monitor for changes Q1hr and PRN.
--- NOTE | 2020-06-25 21:33 | NUR ---
Talked with hospitalist about elevated blood pressure, read back and verified will carry out orders.
[2020-06-25] MEDS ORDERED: hydrALAZINE HCL 20 MG/ML VL IV PRN (21:45)
[2020-06-26] VITALS (8 sets, daily range): BP systolic 142–160; BP diastolic 71–104
--- NOTE | 2020-06-26 04:25 | NUR ---
Oniel GODDARD ordered blood pressure medication read back verified, will carry out order
[2020-06-26 05:06] LABS: RPR Non Reactive (Non Reactive)
[2020-06-26] MEDS: FUROSEMIDE 20 MG/2 ML VIAL IV SCH ×2 (05:26→18:31)
[2020-06-26] MEDS: hydrALAZINE HCL 25 MG TAB PO SCH ×3 (06:29→22:11)
[2020-06-26 06:31] LABS: Basophils # (auto) 0 10 ^3/uL (0-0.2); Basophils % (auto) 0.8 % (0.0-2.0); Eosinophils # (auto) 0.2 10 ^3/uL (0-0.8); Eosinophils % (auto) 3.2 % (0.0-7.0); Hematocrit 24.8 % (41.0-53.0); Hemoglobin 8.5 g/dL (13.5-17.5); Lymphocytes # (auto) 1.2 10 ^3/uL (0.4-5.4); Lymphocytes % (auto) 23.5 % (10.0-50.0); Mean Corpuscular Hemoglobin 30.5 pg (28.0-32.0); Mean Corpuscular Hgb Conc. 34.4 g/dL (32.0-36.0); Mean Corpuscular Volume 88.7 fL (80.0-100.0); Monocytes # (auto) 0.3 10 ^3/uL (0-1.3); Monocytes % (auto) 6.5 % (0.0-12.0); Neutrophils # (auto) 3.4 10 ^3/uL (1.6-8.6); Platelet Count (auto) 241 10^3/uL (140-450); Red Cell Distribution Width 13.4 % (11.8-14.3); White Blood Cell 5.1 10^3/uL (4.4-10.8)
[2020-06-26 06:44] LABS: INR 1.08 (0.9-1.15)
[2020-06-26 06:49] LABS: BUN/Creatinine Ratio 12.7; Calcium 7.9 mg/dL (8.5-10.1); Magnesium 1.9 mg/dL (1.6-2.6); Phosphorus 4.3 mg/dL (2.5-4.90); Uric Acid 7.2 mg/dL (3.5-7.2)
--- NOTE | 2020-06-26 07:30 | NUR ---
Opening Shift Note Assumed care of patient, awake and alert. No S/S of distress/SOB or pain. Instructed on POC and to call for assist PRN, will continue to monitor for changes Q1hr and PRN. Fall precautions in place per safety protocol.
--- NOTE | 2020-06-26 09:44 | NUR ---
WOUND CARE NOTE: Wound care in to see patient per wound care request regarding wounds that are noted present on admission. Bedside nurse took photograph of patient's wound upon admission for reference. Patient is 40 years old male with admitting diagnosis of Kidney Failure, Pleural Effusion. Patient with history of DM and Htn. Patient is resting in bed in Rm. 272B. Patient is awake, alert and oriented. Patient is in no stated pain at this time. Patient is ambulatory and self turning and repositioning. His Damon score is 18. Noted patient's L rodriguez has 3.5x3cm open full thickness ulcer. Wound is red with yellow slough,thin brown scab. Mable wound is bright red and his LLE has mild edema. Minimal serous drainage noted,no odor noted. Patient reported that he accidentally hit his L rodriguez on a metal bar when he went in the dark causing wound to his L rodriguez. 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 He also has history of partial amputation of L great toe. 2x2cm open full thickness wound with no measurable depth noted to his plantar L great toe. Wound is red with granulation tissue noted,minimal serosanguineous drainage noted, no odor noted. Multi small, dry scabs noted to his distal L great toe, L 2nd toe and L 5th toe. 0.5x0.5cm dry blood blisters noted to patient's distal R great toe and distal R 3rd toe, area is clean and dry,left open to air. Cleansed patient's L rodriguez and L great toe wounds with wound cleanser, patted dry with gauze, applied Thera honey gauze over wound bed area. Covered L rodriguez wound with abd pad, secured with stockinette. Covered L great toe wound with Opti foam and lightly secured with Co Ban per MD order. Patient's education given regarding wound care and needs to follow up with his senior corporate strategy manager for [facility] [employer]. Patient tolerated well and verbalized understanding. RECOMMENDATION: Nursing to continue EOD/PRN dressing change to Lt rodriguez and L great toe wounds per MD order, follow up with Boat Outfitting Supervisor, elevate affected extremity on pillows,continue monitoring by wound care while patient is hospitalized. Addendum: 06/26/20 at 1141 by Gladys Rivers RN Amended: Links added.
[2020-06-26] MEDS: DOCUSATE SOD 100 MG CAP PO SCH ×2 (09:45→22:11)
[2020-06-26] MEDS: amLODIPine BESYLATE 5 MG TAB PO SCH (09:47)
[2020-06-26] MEDS: HEPARIN SODIUM (PORCINE) 5000 UNITS/ML 1ML VIAL SC SCH ×2 (09:51→22:11)
[2020-06-26] MEDS ORDERED: OPTISON 3ml Vial for INJ IV ONE (11:25)
--- NOTE | 2020-06-26 13:45 | NUR ---
Thoracentesis Patient taken by radiology for thoracentesis. Will cont to monitor when patient returns to floor.
--- NOTE | 2020-06-26 14:37 | NUR ---
THORACENTESIS RT LUNG THORACENTESIS DONE IN [facility] SEE FLOW SHEET FOR VS. PATIENT TOLERATED PROCEDURE WELL. 1500ML JONO COLORED LIQUID OBTAINED AND TAKEN TO LAB FOR ORDERED TESTING. XEROFORM DRSG AND TEGADERM APPLIED TO RIGHT UPPER POSTERIOR BACK. REPORT CALLED TO RUFUS DELEON.
--- NOTE | 2020-06-26 14:42 | NUR ---
Patient back to room, Per Daphney from radiology 1500mls were taken out of right lung. Patient tolerated well. Dressing, clean, dry, and intact.
[2020-06-26] MEDS: ACETAMINOPHEN 325 MG TAB PO PRN (18:40)
--- NOTE | 2020-06-26 19:25 | NUR ---
Opening Shift Note Assumed care of patient, awake and alert x 4. No S/S of distress/SOB or pain pt states some soreness/tenderness at procedure site, dressing dry and intact. Tele box matches pt all leads are in place. Bed lowered and locked side rails up x 2. Call light and bedside table are within reach. Instructed on POC and to call for assist PRN, will continue to monitor for changes Q1hr and PRN.
--- NOTE | 2020-06-26 22:11 | NUR ---
Paged Dr. Matson Pt had thoracentesis during day shift and has heparin sc scheduled for 2200 need to verify medication.
[2020-06-27 05:00] VITALS: BP 151/89
[2020-06-27] MEDS: FUROSEMIDE 20 MG/2 ML VIAL IV SCH ×2 (05:37→18:13)
[2020-06-27] MEDS: hydrALAZINE HCL 25 MG TAB PO SCH ×3 (05:37→22:06)
[2020-06-27 08:10] LABS: Immunoglobulin G, Serum 585 mg/dL (603-1613)
[2020-06-27 09:00] VITALS: BP 146/89
[2020-06-27] MEDS: DOCUSATE SOD 100 MG CAP PO SCH ×2 (09:32→22:01)
[2020-06-27] MEDS: amLODIPine BESYLATE 5 MG TAB PO SCH (09:33)
[2020-06-27] MEDS: HEPARIN SODIUM (PORCINE) 5000 UNITS/ML 1ML VIAL SC SCH ×2 (09:34→22:00)
--- NOTE | 2020-06-27 10:00 | NUR ---
Dressing change to Lt rodriguez and L great toe wounds per MD order. Affected extremity elevated on pillows.
--- NOTE | 2020-06-27 10:09 | NUR ---
Dr. Montes at [facility]
--- NOTE | 2020-06-27 11:08 | NUR ---
Nutrition Consult/assessment Note please see attached link for complete assessment Est Energy needs Abw 91 k-2275kcals (23-25 kcal/kgABW), Est Protein needs: 72-91 gms/day (0.8-1.0 gm/kgABW r/t elev RFT wounds). Will continue to monitor and reassess prn. Addendum: 06/27/20 at [address] Amended: Links added.
[2020-06-27 13:00] VITALS: BP 157/94
--- NOTE | 2020-06-27 13:17 | NUR ---
Cardiology Consultation Dr. Balderas at bed side
--- NOTE | 2020-06-27 15:00 | NUR ---
bi technical lead at bed side
--- NOTE | 2020-06-27 15:10 | NUR ---
Dr. Johnston at bed side
[2020-06-27] MEDS ORDERED: DEXTROSE (50%) 50ML SYRG IV PRN (15:15)
[2020-06-27] MEDS: ACCU-CHEK COMFORT CURVE STRIP VI SCH ×2 (16:31→22:01)
[2020-06-27] MEDS: InsuLIN REG 1unit/0.01ml Soln (100units/ml) SC SCH ×2 (16:31→22:05)
[2020-06-27 17:00] VITALS: BP 149/89
--- NOTE | 2020-06-27 19:20 | NUR ---
OPENING SHIFT NOTE Assumed care of patient who is alert and oriented, currently on RA with no S/S of distress or SOB noted at this time. Patient denies any pain at this time. Santillan is draining clear yellow urine, tubing is free of any kinks, is patent and hanging to the lowest part of the bed. Dressing to the left rodriguez is dry and intact as well as dressing to the left great toe. Edema to the lower extremities noted +1 pitting. POC discussed with patient, all questions answered, patient verbalized understanding. Bed locked, in lowest position, side rails upx2. Call light within reach, patient is encouraged to call for assistance as needed. Will continue to monitor PRN/Q1hr.
[2020-06-27 22:00] VITALS: BP 136/82
[2020-06-28 05:00] VITALS: BP 170/92
[2020-06-28] MEDS: FUROSEMIDE 20 MG/2 ML VIAL IV SCH ×2 (05:50→18:24)
[2020-06-28] MEDS: hydrALAZINE HCL 25 MG TAB PO SCH ×3 (05:51→22:13)
[2020-06-28 06:03] LABS: Basophils # (auto) 0 10 ^3/uL (0-0.2); Basophils % (auto) 0.5 % (0.0-2.0); Eosinophils # (auto) 0.2 10 ^3/uL (0-0.8); Eosinophils % (auto) 3.9 % (0.0-7.0); Hematocrit 26.8 % (41.0-53.0); Lymphocytes # (auto) 1.2 10 ^3/uL (0.4-5.4); Lymphocytes % (auto) 20.4 % (10.0-50.0); Mean Corpuscular Hemoglobin 29.9 pg (28.0-32.0); Mean Corpuscular Hgb Conc. 33.7 g/dL (32.0-36.0); Mean Corpuscular Volume 88.7 fL (80.0-100.0); Monocytes # (auto) 0.5 10 ^3/uL (0-1.3); Neutrophils % (auto) 67.2 % (37.0-80.0); Platelet Count (auto) 246 10^3/uL (140-450); Red Blood Cells 3.02 10^6/uL (4.5-5.90); Red Cell Distribution Width 13.4 % (11.8-14.3)
[2020-06-28 06:28] LABS: Calcium 8.2 mg/dL (8.5-10.1); Magnesium 1.8 mg/dL (1.6-2.6)
[2020-06-28 06:31] LABS: BUN/Creatinine Ratio 13.1
[2020-06-28] MEDS: ACCU-CHEK COMFORT CURVE STRIP VI SCH ×4 (06:47→22:13)
[2020-06-28] MEDS: InsuLIN REG 1unit/0.01ml Soln (100units/ml) SC SCH ×4 (06:47→22:13)
--- NOTE | 2020-06-28 07:32 | NUR ---
CARE ENDORSED TO DAY SHIFT RN
[2020-06-28 09:00] VITALS: BP 152/88
[2020-06-28] MEDS: DOCUSATE SOD 100 MG CAP PO SCH ×2 (09:58→22:12)
[2020-06-28] MEDS: CARVEDILOL 3.125 MG TAB PO SCH ×2 (09:59→22:13)
[2020-06-28] MEDS: HEPARIN SODIUM (PORCINE) 5000 UNITS/ML 1ML VIAL SC SCH ×2 (10:00→22:12)
[2020-06-28] MEDS: amLODIPine BESYLATE 5 MG TAB PO SCH (10:00)
[2020-06-28 12:30] VITALS: BP 124/76
[2020-06-28 17:00] VITALS: BP 144/89
[2020-06-28 21:37] VITALS: BP 154/91
[2020-06-29 05:00] VITALS: BP 148/92
[2020-06-29] MEDS: FUROSEMIDE 20 MG/2 ML VIAL IV SCH ×2 (06:18→18:04)
[2020-06-29] MEDS: hydrALAZINE HCL 25 MG TAB PO SCH ×3 (06:18→21:47)
[2020-06-29] MEDS: ACCU-CHEK COMFORT CURVE STRIP VI SCH ×4 (06:30→21:44)
[2020-06-29] MEDS: InsuLIN REG 1unit/0.01ml Soln (100units/ml) SC SCH ×4 (06:30→21:45)
--- NOTE | 2020-06-29 07:20 | NUR ---
CARE ENDORSED TO DAY SHIFT RN
--- NOTE | 2020-06-29 08:15 | NUR ---
Opening Shift Note Assumed care of patient, awake and alert bed is locked and in lowest position , bed rails up x2 , call light is with in reach , salas is lower than the patient and patent draining clear yellow urine . No S/S of distress/SOB or pain. Instructed on POC and to call for assistance PRN, will continue to monitor for changes Q1hr and PRN.
[2020-06-29 09:29] VITALS: BP 145/86
[2020-06-29] MEDS ORDERED: HEPARIN SODIUM (PORCINE) 5000 UNITS/ML 1ML VIAL ONE (09:52)
[2020-06-29] MEDS: DOCUSATE SOD 100 MG CAP PO SCH ×2 (10:03→21:46)
[2020-06-29] MEDS: CARVEDILOL 3.125 MG TAB PO SCH ×2 (10:04→21:47)
[2020-06-29] MEDS: amLODIPine BESYLATE 5 MG TAB PO SCH (10:04)
[2020-06-29 10:09] LABS: Basophils # (auto) 0 10 ^3/uL (0-0.2); Basophils % (auto) 0.7 % (0.0-2.0); Eosinophils # (auto) 0.3 10 ^3/uL (0-0.8); Eosinophils % (auto) 4.8 % (0.0-7.0); Lymphocytes # (auto) 1.6 10 ^3/uL (0.4-5.4); Lymphocytes % (auto) 26.4 % (10.0-50.0); Mean Corpuscular Hemoglobin 30.7 pg (28.0-32.0); Mean Corpuscular Hgb Conc. 34.8 g/dL (32.0-36.0); Mean Corpuscular Volume 88.1 fL (80.0-100.0); Monocytes # (auto) 0.5 10 ^3/uL (0-1.3); Monocytes % (auto) 7.8 % (0.0-12.0); Neutrophils # (auto) 3.6 10 ^3/uL (1.6-8.6); Neutrophils % (auto) 60.3 % (37.0-80.0); Platelet Count (auto) 244 10^3/uL (140-450); Red Blood Cells 2.95 10^6/uL (4.5-5.90); Red Cell Distribution Width 13.1 % (11.8-14.3); White Blood Cell 5.9 10^3/uL (4.4-10.8)
[2020-06-29] MEDS: HEPARIN SODIUM (PORCINE) 5000 UNITS/ML 1ML VIAL SC SCH ×2 (10:12→21:46)
[2020-06-29 10:31] LABS: BUN/Creatinine Ratio 13.6; Calcium 8.1 mg/dL (8.5-10.1); Potassium 3.8 mmol/L (3.5-5.1)
[2020-06-29 15:18] VITALS: BP 150/91
--- NOTE | 2020-06-29 16:53 | NUR ---
PATIENT REFUSED INSULIN BLOOD GLUCOSE IS 136 PATIENT SAYS THAT ITS OK , EDUCATED ON WHY THEY NEED MEDICATION STILL REFUSED MED.
[2020-06-29 17:00] VITALS: BP 135/74
--- NOTE | 2020-06-29 18:52 | NUR ---
CLOSING SHIFT NOTE ENDORSED CARE TO BOILER OR ENGINE OPERATOR. Addendum: 06/29/20 at 1853 by Shonda Bowser RN BOILER OR ENGINE OPERATOR RN
[2020-06-29 21:29] VITALS: BP 141/78
[2020-06-30 05:05] VITALS: BP 129/62
[2020-06-30] MEDS ORDERED: HYDROcodone-ACET 5/325MG TAB PO PRN (05:15)
[2020-06-30 06:22] LABS: Basophils # (auto) 0 10 ^3/uL (0-0.2); Basophils % (auto) 0.8 % (0.0-2.0); Eosinophils # (auto) 0.2 10 ^3/uL (0-0.8); Eosinophils % (auto) 4.7 % (0.0-7.0); Hematocrit 25.9 % (41.0-53.0); Hemoglobin 8.8 g/dL (13.5-17.5); Lymphocytes # (auto) 1.2 10 ^3/uL (0.4-5.4); Lymphocytes % (auto) 23.5 % (10.0-50.0); Mean Corpuscular Hgb Conc. 33.8 g/dL (32.0-36.0); Mean Corpuscular Volume 88.6 fL (80.0-100.0); Monocytes # (auto) 0.3 10 ^3/uL (0-1.3); Monocytes % (auto) 6.6 % (0.0-12.0); Neutrophils # (auto) 3.2 10 ^3/uL (1.6-8.6); Neutrophils % (auto) 64.4 % (37.0-80.0); Nucleated Red Blood Cells % 0.1 %; Platelet Count (auto) 246 10^3/uL (140-450); Red Blood Cells 2.92 10^6/uL (4.5-5.90); Red Cell Distribution Width 13.4 % (11.8-14.3)
[2020-06-30] MEDS: hydrALAZINE HCL 25 MG TAB PO SCH ×2 (06:33→14:07)
[2020-06-30] MEDS: FUROSEMIDE 20 MG/2 ML VIAL IV SCH (06:33)
[2020-06-30] MEDS: ACCU-CHEK COMFORT CURVE STRIP VI SCH ×2 (06:34→12:03)
[2020-06-30] MEDS: InsuLIN REG 1unit/0.01ml Soln (100units/ml) SC SCH ×2 (06:34→11:53)
[2020-06-30 06:44] LABS: BUN/Creatinine Ratio 14.9; Calcium 8.3 mg/dL (8.5-10.1)
[2020-06-30 08:00] VITALS: BP 127/74
--- NOTE | 2020-06-30 08:00 | NUR ---
Opening Shift Note Assumed care of patient, pt is awake and A&OX4. No S/S of distress/SOB or pain. Insructed on POC and to call for assist PRN, bed is in lowest position with locked wheels, call light within reach. will continue to monitor for changes Q1hr and PRN.
[2020-06-30 09:00] VITALS: BP 127/74
[2020-06-30] MEDS: DOCUSATE SOD 100 MG CAP PO SCH (09:47)
[2020-06-30] MEDS: amLODIPine BESYLATE 5 MG TAB PO SCH (09:49)
[2020-06-30] MEDS: CARVEDILOL 3.125 MG TAB PO SCH (09:50)
[2020-06-30] MEDS: HEPARIN SODIUM (PORCINE) 5000 UNITS/ML 1ML VIAL SC SCH (10:05)
[2020-06-30] MEDS: ACETAMINOPHEN 325 MG TAB PO PRN (10:06)
--- NOTE | 2020-06-30 12:06 | NUR ---
Nutrition Followup Note Wt 108.5kg Pt was alert and oriented at time of rounds. Pt denies any GI issues and reports appetite is good. Pt is with a Renal Specific diet with 100% po intake x 2 days per RN note. Est Energy needs Abw 91 k-2275kcals (23-25 kcal/kgABW), Est Protein needs: 72-91 gms/day (0.8-1.0 gm/kgABW r/t elev RFT wounds). Will continue to monitor and reassess prn. Labs: BUN 54H, Creat 3.62H, Alb 1.8L, Ca 8.3L, GLUC 122H BM: Pt with 2 BMs 06/28 per Rn note Skin: BS 18 mod risk, full details in ambulatory care nurse note PES: Altered nutrition related lab values r/t current chronic medical condition aeb elev RFT hypocalcmeia Decreased nutrient needs r/t adiposity aeb pt`s high BMI of 30.3 kgm2 Comments 1) consider CCHO 60 gm renal specific 90 gm protein 2 gm na diet2) refer to opd on DC 3) refer to CDE on DC 4) consider MVI/C bid 5) continue current plan of care Expected Outcomes/Goals: pt will have better healing wounds pt will have improved labs F/u mod 3-5 days
--- NOTE | 2020-06-30 12:12 | NUR ---
Salas Catheter Removed Salas catheter removed. 900mL removed from salas before d/c. Pt instructed to call/report for any difficulties with urinating. Will continue to monitor. Addendum: 06/30/20 at 1546 by SHRAVAN ORANTES RN RN Pt reported ability to void since d/c.
[2020-06-30 13:00] VITALS: BP 132/84
--- NOTE | 2020-06-30 14:13 | NUR ---
Dr Johnston at Bedside MD to see pt. Plans to d/c pt home once cleared by Ney, stated he would contact Dr Balderas. Pt is requesting further clearance for an "eye operation". provided pt with education regarding need to see pt's PCP for clearance, not clearance from hospital setting. Will continue to monitor and implement d/c
--- NOTE | 2020-06-30 15:00 | NUR ---
D/C Photos Taken for Reference
[2020-06-30 15:14] VITALS: BP 132/84
--- NOTE | 2020-06-30 15:43 | NUR ---
Pt D/C'ed off Unit Pt ambulated off unit with all belongings, education material, all questions were answered and all prescriptions provided. Pt is a/ox4 with no s/s of distress. Pt awar of need to make f/u appointments. IV to L FA removed and tele box sent back to ICU; staff made aware.
[2020-06-30] MEDS ORDERED: FUROSEMIDE 40 MG/4 ML VIAL IV SCH (18:00)
== END 2020-06-30 15:47 | disposition home or self-care (01) | DRG 194 ==
LOC: ER 10:28 → TELE 10:29 → TELE-EAST 06-25 06:00 → TELE-WESTW 06-25 10:54
PROVIDERS: ADMIT Internal Medicine; ATTEND Internal Medicine
PROC: 0W993ZZ Drainage of Right Pleural Cavity, Percutaneous Approach (ICD-10-PCS; principal; 2020-06-26)
DX: I13.0 Hypertensive heart and chronic kidney disease with heart failure and stage 1 through stage 4 chronic kidney disease, or unspecified chronic kidney disease (principal); N17.9 Acute kidney failure, unspecified; J90 Pleural effusion, not elsewhere classified; E88.09 Other disorders of plasma-protein metabolism, not elsewhere classified; E11.22 Type 2 diabetes mellitus with diabetic chronic kidney disease; N04.8 Nephrotic syndrome with other morphologic changes; E11.319 Type 2 diabetes mellitus with unspecified diabetic retinopathy without macular edema; E11.42 Type 2 diabetes mellitus with diabetic polyneuropathy; I50.23 Acute on chronic systolic (congestive) heart failure; D50.9 Iron deficiency anemia, unspecified; Z20.828 Contact with and (suspected) exposure to other viral communicable diseases; F12.10 Cannabis abuse, uncomplicated; I16.0 Hypertensive urgency; D63.8 Anemia in other chronic diseases classified elsewhere; N50.89 Other specified disorders of the male genital organs; J98.11 Atelectasis; E66.9 Obesity, unspecified; N18.9 Chronic kidney disease, unspecified; N43.3 Hydrocele, unspecified; N50.3 Cyst of epididymis; Z79.84 Long term (current) use of oral hypoglycemic drugs; Z79.899 Other long term (current) drug therapy; Z83.3 Family history of diabetes mellitus; Z87.891 Personal history of nicotine dependence; Z68.32 Body mass index [BMI] 32.0-32.9, adult; Z89.422 Acquired absence of other left toe(s)
CPT/HCPCS: 36415; 51702; 71045; 71046; 74176; 76604; 76775; 76870; 76942; 80048; 80053; 80061; 80076; 80307; 81001; 82270; 82306; 82570; 82607; 82784; 82962; 83036; 83540; 83550; 83615; 83735; 83880; 83970; 83986; 84100; 84155; 84156; 84165; 84300; 84484; 84550; 85007; 85025; 85027; 85045; 85610; 85652; 86334; 86592; 86803; 86880; 87205; 87340; 87426; 89051; 93005; 93306; 93970; 96365; 96375; C9113; G0378; J0696; J1815; J2405; Q9956

== ENCOUNTER → 2023-10-25 | Outpatient (CLI) | payer MEDICARE, MEDICAID ==
[~2023-10-25] VITALS: Ht 180.3 cm; Wt 86.2 kg
[~2023-10-25] MED LIST changes: +ADENOSINE 72 MG in GIVE UN-DILUTED 0 ML IV ONE; +ADENOSINE 90 MG/30 ML INJ IV ONE; -AMOX500T86 PO; +GLIP5TAB12 PO
== END | disposition home or self-care (01) ==
LOC: Rad HDHVI 09:35
PROVIDERS: ATTEND Internal Medicine Cardiovascular Disease
DX: Z01.810 Encounter for preprocedural cardiovascular examination (principal); I13.0 Hypertensive heart and chronic kidney disease with heart failure and stage 1 through stage 4 chronic kidney disease, or unspecified chronic kidney disease; E11.22 Type 2 diabetes mellitus with diabetic chronic kidney disease; I50.22 Chronic systolic (congestive) heart failure; N18.6 End stage renal disease; E78.5 Hyperlipidemia, unspecified
CPT/HCPCS: 78452; 93005; 96374; 96375; A9500; J0153

== ENCOUNTER → 2024-03-18 | Outpatient (CLI) | payer MEDICARE, MEDICAID ==
[~2024-03-18] MED LIST changes: -ADENOSINE 72 MG in GIVE UN-DILUTED 0 ML IV ONE; -ADENOSINE 90 MG/30 ML INJ IV ONE; -GLIP5TAB12 PO; +GLIP5TAB21 PO
== END | disposition home or self-care (01) ==
LOC: LAB 14:37
PROVIDERS: ATTEND Student in an Organized Health Care Education/Training Program
DX: E11.9 Type 2 diabetes mellitus without complications (principal)
CPT/HCPCS: 36415; 83036